=== PATIENT | male | born 1970 | race Caucasian/White ===

== ENCOUNTER → 2024-11-18 12:30 | Outpatient (REF) | payer BC, SELFPAY ==
[2024-11-18 16:44] LABS: % Basophils 0.4 % (0-2); % Eosinophils 0.4 % (0-6); % Immature Granulocytes 0.6 % (0-0.5); % Lymphocytes 25.2 % (20.5-51.1); % Monocytes 7.9 % (1.7-9.3); % Neutrophils 65.5 % (42.2-75.2); Absolute Immature Granulocytes 0.1 10^3/uL (0-0.05); Absolute Lymphocytes 2.4 10^3/uL (1.2-3.4); Absolute Monocytes 0.8 10^3/uL (0.1-0.6); Absolute Neutrophils 6.3 10^3/uL (1.4-6.5); Hematocrit 42.1 % (39.0-52.0); Hemoglobin 13.9 g/dL (13.0-18.0); Mean Corpuscular Hgb 29.4 pg (27.0-31.0); Mean Corpuscular Volume 89.2 fL (80.0-94.0); Mean Platelet Volume 9.6 fL (7.4-10.4); Nucleated Red Blood Cells % 0 % (-); Platelet Count 317 10^3/uL (130-400); Red Blood Cell Count 4.72 10^6/uL (4.70-6.10); Red Cell Dist. Width 13.1 % (11.5-14.5); White Blood Cell Count 9.7 10^3/uL (4.8-10.8)
[2024-11-18 16:51] LABS: ALT (SGPT) 24 U/L (0-50); AST (SGOT) 31 U/L (17-59); Albumin 4.9 g/dl (3.5-5.0); Alkaline Phosphatase 78 U/L (38-126); Blood Urea Nitrogen 13 mg/dl (9-20); Calcium 9.8 mg/dl (8.4-10.2); Carbon Dioxide 30 mmol/L (22-30); Chloride 100 mmol/L (98-107); Glucose 84 mg/dl (70-99); HDL Cholesterol 51 mg/dl; LDL Cholesterol, Calculated 178 mg/dl; Potassium 4.7 mmol/L (3.5-5.1); Sodium 137 mmol/L (135-145); Total Bilirubin 0.9 mg/dl (0.2-1.3); Total Cholesterol 262 mg/dl (50-199); Total Protein 7.6 g/dl (6.3-8.2); Triglyceride 168 mg/dl (10-149); Very Low Density Lipoprotein 33 mg/dl (0-30); eGFR > 60.00
[2024-11-18 17:22] LABS: TSH Reflex To Free T4 1.04 uIU/ml (0.47-4.68)
[2024-11-18 17:25] LABS: PSA, Total - Screen 1.39 ng/ml (0.0-4.0)
[2024-11-18 17:58] LABS: Folate 8.6 ng/ml (2.76-20); Vitamin B12 921 pg/ml (239-931)
[2024-11-21 08:49] LABS: ANA, IgG Reflex to HEp-2 None Detected (None Detected)
== END ==
LOC: HWLAB 12:30
PROVIDERS: ATTENDING PHYSICIAN Hospitalist
DX: L65.9 Nonscarring hair loss, unspecified (principal); Z12.5 Encounter for screening for malignant neoplasm of prostate; E78.5 Hyperlipidemia, unspecified
CPT/HCPCS: 36415; 80053; 80061; 82607; 82746; 84443; 85025; 86038; G0103

== ENCOUNTER → 2024-11-26 08:40 | Outpatient (REF) | payer SELFPAY | LOC: HWRAD 08:40 | PROVIDERS: ATTENDING PHYSICIAN Hospitalist | DX: E78.5 Hyperlipidemia, unspecified (principal) | CPT/HCPCS: 75571 ==

== ENCOUNTER → 2024-12-21 08:35 | Outpatient (REF) | payer BC, SELFPAY ==
[2024-12-21 11:27] LABS: % Basophils 0.4 % (0-2); % Eosinophils 0.6 % (0-6); % Immature Granulocytes 0.4 % (0-0.5); % Lymphocytes 26.5 % (20.5-51.1); % Monocytes 8.1 % (1.7-9.3); Absolute Lymphocytes 1.9 10^3/uL (1.2-3.4); Absolute Monocytes 0.6 10^3/uL (0.1-0.6); Absolute Neutrophils 4.6 10^3/uL (1.4-6.5); Hematocrit 43.9 % (39.0-52.0); Hemoglobin 14.8 g/dL (13.0-18.0); Mean Corp Hgb Conc. 33.7 g/dL (33.0-37.0); Mean Corpuscular Hgb 30.1 pg (27.0-31.0); Mean Corpuscular Volume 89.4 fL (80.0-94.0); Nucleated Red Blood Cells % 0 % (-); Platelet Count 315 10^3/uL (130-400); Red Blood Cell Count 4.91 10^6/uL (4.70-6.10); Red Cell Dist. Width 12.7 % (11.5-14.5); White Blood Cell Count 7.3 10^3/uL (4.8-10.8)
[2024-12-21 11:38] LABS: ALT (SGPT) 20 U/L (0-50); AST (SGOT) 32 U/L (17-59); Albumin 4.5 g/dl (3.5-5.0); Alkaline Phosphatase 79 U/L (38-126); Blood Urea Nitrogen 16 mg/dl (9-20); Carbon Dioxide 28 mmol/L (22-30); Chloride 100 mmol/L (98-107); Creatine Phosphokinase 124 U/L (55-170); Glucose 96 mg/dl (70-99); Potassium 4.7 mmol/L (3.5-5.1); Sodium 138 mmol/L (135-145); Total Bilirubin 0.8 mg/dl (0.2-1.3); Total Protein 7.6 g/dl (6.3-8.2); eGFR > 60.00
[2024-12-21 11:49] LABS: CKMB 0.7 ng/ml (0.0-3.4)
[2024-12-21 12:07] LABS: Erythrocyte Sed Rate 8 mm/hour (0-20)
[2024-12-21 14:41] LABS: Rheumatoid Agglutinin Less Than 10 IU (<10 IU)
[2024-12-22 10:06] LABS: Angiotensin-1-converting Enzym 73 U/L (16-85)
[2024-12-22 10:07] LABS: % Free Testosterone 1.5 % (1.6-2.9); Free Testosterone 72 pg/mL (47-244); Sex Hormone Binding Globulin 50 nmol/L (19-76); Total Testosterone 489 ng/dL (300-890)
[2024-12-22 18:57] LABS: CCP Antibody IgG/IgA 5 Units (0-19)
[2024-12-24 11:35] LABS: Lyme Antibody Screen, EIA Negative (Negative)
== END ==
LOC: HWLAB 08:35
PROVIDERS: ATTENDING PHYSICIAN Student in an Organized Health Care Education/Training Program; FAMILY PHYSICIAN Hospitalist
DX: L65.9 Nonscarring hair loss, unspecified (principal); M25.60 Stiffness of unspecified joint, not elsewhere classified; M54.50 Low back pain, unspecified; R21 Rash and other nonspecific skin eruption; R53.83 Other fatigue
CPT/HCPCS: 36415; 80053; 82164; 82550; 82553; 84270; 84402; 84403; 85025; 85652; 86140; 86200; 86430; 86618; 86812